=== PATIENT | male | born 1965 | race Caucasian/White ===

== ENCOUNTER 2020-04-05 11:41 | Emergency (ER) | payer SELFPAY ==
[2020-04-05 11:48] VITALS: BP 138/86; PULSE 73; RESP 16; TEMP 36.6; O2SAT 98; BMI 34.9
--- NOTE | 2020-04-05 12:11 | HMH.EDBACK ---
ED Disposition Clinical Impression: Lumbar radiculopathy Disposition: Home, Self-Care Condition on Discharge: Good Instructions: DI for Back Pain With Sciatica Additional Instructions: Follow-up with Dr. Jones at [facility] within the next week for reevaluation. Prescriptions: methylPREDNISolone [Medrol] 4 mg PO DIRECTED #21 pack Prescription Printed - Critical Care Critical Care Time: No Attestation: On 04/05/20, the high probability of a clinically significant, sudden or life threatening deterioration of the following system(s) required my full and direct attention, intervention and personal management. The time I documented below is in addition to time spent performing reported procedures but includes the following listed in this critical care notation. Medical Decision Making - Medical Records Medical records reviewed: Yes: I reviewed the patient's medical records. - Dioni Inquiry Pt receiving controlled substance: No Vital Signs: 04/05/20 11:48 Temperature 98 F Temperature Source Oral Pulse Rate [Left Radial] 73 Respiratory Rate 16 Blood Pressure [Right Arm] 138/86 Blood Pressure Mean [Right Arm] 103 Blood Pressure Position [Right Arm] Sitting 02 Sat by Pulse Oximetry 98 Oxygen Delivery Method Room Air Medical Decision Narrative: Exam and history is inconsistent with cauda equina, discitis, epidural abscess, mass. He recently had CT scan of the lumbar spine which showed, per patient report, no acute fracture but did suggest degenerative disc disease and inflammation , which is likely arthritis. He does not want to try any additional medications that might make him more sleepy. I have suggested steroids and follow-up with spine surgery. Patient comfortable with this plan. Discharged home. Back Pain HPI - General Chief Complaint: Back Pain/Injury Stated Complaint: pain in back Time Seen by Provider: 04/05/20 12:11 Mode of Arrival: Ambulatory Source of Information: Patient Limitations: No Limitations Description of Symptoms (Recalled from ER Triage Doc. by RN): to ed per pvt car with c/o lower back pain radiating down lt leg x 2 weeks. pt seen at er in [place] dx with ruptured disc pt given naproxen and robaxin with no relief of symptoms. pt states he has been unable to sleep due to pain - History of Present Illness HPI Narrative: This is a 55-year-old male who presents to the emergency department for evaluation of low back pain for the last 2 weeks. No urinary symptoms, no abdominal pain. He states it started after he had been sitting in a chair for a long time and stood up to stretch. Pain is worse when lying flat on his back. He has pain that radiates primarily down his left leg to his left anterior and posterior thigh, but now is also starting to radiate down his right thigh. He denies any loss of bowel or bladder control. He does not have any fevers. No history of IV drug abuse or cancer. No trauma or falls. He was seen for this several days ago at [facility] and was prescribed Robaxin and naproxen but has not had significant relief from this. He did have a CT scan performed at that time which showed degenerative disc disease and inflammation per patient's report. He also states that he does not want any additional medication here that might make him sleepy. He has tried Flexeril in the past for similar symptoms. He declined narcotics. He states Robaxin makes him sleepy as well and he cannot use it. - Related Data Home Medications Medication Instructions Recorded Confirmed Methocarbamol [Robaxin 500mg Tab*] 500 mg PO TID 04/05/20 04/05/20 Naproxen 500 mg PO BID 04/05/20 04/05/20 Previous Rx's Medication Instructions Recorded methylPREDNISolone [Medrol] 4 mg PO DIRECTED #21 pack 04/05/20 Allergies Allergy/AdvReac Type Severity Reaction Status Date / Time No Known Allergies Allergy Verified 04/05/20 12:12 [facility] History
[2020-04-05 12:45] VITALS: BP 130/97; PULSE 72; RESP 18; TEMP 36.7; O2SAT 98
== END 2020-04-05 12:46 | disposition home or self-care (01) ==
PROVIDERS: Emergency Provider Emergency Medicine
DX: M54.16 Radiculopathy, lumbar region (principal)
CPT/HCPCS: 99281

== ENCOUNTER 2023-06-26 07:24 | Emergency (ER) | payer OTHER, SELFPAY ==
[2023-06-26 07:25] VITALS: BP 142/93; PULSE 80; RESP 18; TEMP 36.5; O2SAT 97; BMI 35.2
[2023-06-26 07:31] VITALS: BP 142/93; PULSE 71; O2SAT 96
--- NOTE | 2023-06-26 07:31 | CT_ITS ---
FINAL REPORT TECHNIQUE: Axial images through the abdomen and pelvis were performed without contrast. This study was performed with techniques to keep radiation doses as low as reasonably achievable, (ALARA). Individualized dose reduction techniques using automated exposure control or adjustment of mA and/or kV according to the patient's size were employed. CLINICAL HISTORY: right flank pain rad to groin COMPARISON: None FINDINGS: Abdomen: The lung bases are clear. There is moderate fatty infiltration of the liver. The gallbladder is present. There is mild splenomegaly with the spleen measuring 14.3 cm. The pancreas, adrenals and kidneys are unremarkable. Pelvis: The urinary bladder is incompletely distended. The appendix is normal. There is no pelvic mass or inflammation. IMPRESSION: Moderate fatty liver. Mild splenomegaly. Reviewed, Interpreted and Dictated by Bentley Delarosa MD Transcribed by Tara Weller Authenticated and [facility]
--- NOTE | 2023-06-26 07:32 | HMH.EDGENADL ---
Discharge Plan Disposition Patient Disposition: Home, Self-Care Prescriptions Prescriptions: New ibuprofen 800 mg tablet 800 mg PO TID PRN (Reason: pain) 7 Days Qty: 20 0RF cyclobenzaprine 5 mg tablet 5 mg PO TID PRN (Reason: muscle spasm) 5 Days Qty: 15 0RF No Action methocarbamol 500 MG tablet 500 mg PO TID naproxen 500 MG tablet 500 mg PO BID methylprednisolone 4 MG tablets,dose pack 4 mg PO DIRECTED Qty: 21 0RF Rx Instructions: take as directed on package instructions Activity Restrictions/Add. Instructions Additional Instructions/Restrictions: No evidence of acute intra-abdominal pathology. He did have liver fatty infiltration as discussed. I would recommend follow-up with primary care doctor and losing weight. No evidence of kidney stone or any other emergent pathology. Your symptoms are most likely secondary to musculoskeletal strain and inflammation. Clinical Impressions Clinical Impression: Sacro-iliac pain, Fatty liver Stand Alone Forms Stand Alone Forms: Work/School Release Discharge ED Provider: Shanna King General Adult HPI General Chief complaint: PAIN Stated complaint: right side and back pain, congestion Time Seen by Provider: 06/26/23 07:26 History of Present Illness HPI narrative: Patient is a 58-year-old male presenting today with right lower back pain that is radiating into his right groin. Patient denies any history of kidney stones. Denies any hematuria urgency frequency or dysuria. No constipation or diarrhea. No fevers or chills. States he did have a viral URI last week but no other recent illnesses or significant medical problems. He does not complain of lower extremity weakness saddle anesthesia urinary or bowel incontinence or urinary retention etc. Related Data Home Medications Medication Instructions Recorded Confirmed methocarbamol 500 mg tablet 500 mg PO TID muscle relaxer 04/05/20 04/05/20 naproxen 500 mg tablet 500 mg PO BID Pain 04/05/20 04/05/20 Previous Rx's Medication Instructions Recorded methylprednisolone 4 mg tablets in 4 mg PO DIRECTED ##21 04/05/20 a dose pack cyclobenzaprine 5 mg tablet 5 mg PO TID PRN muscle spasm 5 06/26/23 days #15 tabs ibuprofen 800 mg tablet 800 mg PO TID PRN pain 7 days #20 06/26/23 tabs Allergies Allergy/AdvReac Type Severity Reaction Status Date / Time No Known Allergies Allergy Verified 04/05/20 12:12 [facility] Disclaimer: The information contained in this section may have been updated after the patient was seen, as this information can be updated by other users. Social History Smoking Status: Never smoker alcohol intake: never current occupational status: other Travel in the last 8 weeks: None household members: other housing: other ROS Obtained: Yes All systems reviewed & no additional complaints except as documented Physical Exam General General appearance: alert and in no apparent distress Respiratory Respiratory exam: Present normal lung sounds bilaterally; Absent respiratory distress Cardiovascular Cardiovascular exam: Present regular rate; Absent tachycardia Back Exam Back exam: Present other (Tender to palpation in the paraspinal region of the lower lumbar spine and the sacroiliac aspect); Absent CVA tenderness (R) or CVA tenderness (L) Neurological Exam Neurological exam: Present alert Medical Decision Making Dioni Inquiry Pt receiving controlled substance: No Vital Signs: 06/26/23 07:25 06/26/23 07:31 06/26/23 08:42 Temperature 97.7 F Temperature Source Oral Pulse Rate 71 61 Pulse Rate [Right] 80 Respiratory Rate 18 Blood Pressure 142/93 H 103/69 L Blood Pressure [Right Arm] 142/93 H Blood Pressure Mean 116 80 Blood Pressure Mean [Right Arm] 109 Blood Pressure Source [Right Arm] Automatic Cuff 02 Sat by Pulse Oximetry 97 96 96 Oxygen Delivery Method Room Air Lab Data Lab results re
[2023-06-26 07:45] LABS: Microscopic, Urine URINE MICROSCOPIC (MICROSCOPIC)
[2023-06-26 07:49] LABS: Appearance,Urine CLEAR (Clear); Blood, Urine Negative (Negative); Color,Urine YELLOW (Yellow); Glucose,Urine (UA) Negative (Negative); Ketones,Urine Negative (Negative); Leukocyte Esterase,Urine Negative (Negative); Nitrate,Urine Negative (Negative); Protein,Urine TRACE (Negative); Specific Gravity, Urine >= 1.030 (1.005-1.030); Urobilinogen,Urine 0.2 EU/dl (0.2)
[2023-06-26 07:58] LABS: Bilirubin,Urine 1+ (Negative)
[2023-06-26 08:03] LABS: Bacteria,Urine Trace /lpf; Squamous Epithelial Cell,Urine Occasional #/hpf (0-5)
[2023-06-26 08:04] LABS: Basophils # 0.1 K/mm3 (0-0.2); Basophils % 0.7 % (0.1-2.0); Eosinophils # 0.2 K/mm3 (0.0-0.4); Eosinophils % 3.6 % (0.1-12.0); Hematocrit 47.5 % (42.0-52.0); Hemoglobin 16.3 g/dL (14.1-18.0); Lymphocytes # 2.1 K/mm3 (0.7-4.5); Lymphocytes % 33.1 % (10-50); Mean Corpuscular HGB Conc 34.3 g/dL (31.8-35.4); Mean Corpuscular Hemoglobin 31.7 pg (27.0-31.2); Mean Corpuscular Volume 92.6 fl (80-94); Mean Platelet Volume 9.9 fl (7.4-10.4); Monocytes # 0.4 K/mm3 (0.1-1.0); Monocytes % 5.5 % (1.7-9.3); Neutrophils # 3.6 K/mm3 (1.8-7.8); Platelet Count 172 K/mm3 (142-424); Red Blood Count 5.14 M/mm3 (4.60-6.20); White Blood Count 6.3 K/mm3 (4.8-10.8)
[2023-06-26 08:09] LABS: Chloride 107 mmol/L (98-107)
[2023-06-26 08:10] LABS: Potassium 3.4 mmoL/L (3.5-5.1); Sodium 143 mmol/L (136-145)
[2023-06-26 08:12] LABS: Alanine Aminotransferase 42 U/L (12-78); Aspartate Amino Transferase 24 U/L (17-59); Blood Urea Nitrogen 18 mg/dl (9-20); Creatinine Clearance Estimated 136 mL/min (50-200); Estimated Glomerular Filt Rate 87 ml/min (>60); GFR (African American) 106 ML/MIN (>60)
[2023-06-26 08:13] LABS: Albumin Level 4.1 g/dl (3.5-5.0); Albumin/Globulin Ratio 1.3 (1.1-1.8); Alkaline Phosphatase 112 U/L (38-126); Anion Gap 14.4 mEq/L (5-15); Bilirubin,Total 0.9 mg/dl (0.2-1.3); Calcium 9.7 mg/dl (8.4-10.2); Carbon Dioxide 25 mmol/L (22.0-30.0); Globulin 3.1 g/dL (1.3-3.2); Glucose 123 mg/dl (74-100); Total Protein,Serum 7.2 g/dl (6.3-8.2)
--- NOTE | 2023-06-26 08:40 | PC.NURSE ---
Rounded on patient; no needs as this time, call britton within reach.
[2023-06-26 08:42] VITALS: BP 103/69; PULSE 61; O2SAT 96
[2023-06-26 09:04] VITALS: BP 115/72; PULSE 51; RESP 17; TEMP 36.6; O2SAT 98
== END 2023-06-26 09:32 | disposition home or self-care (01) ==
PROVIDERS: Emergency Provider Student in an Organized Health Care Education/Training Program
DX: M54.50 Low back pain, unspecified (principal); R10.2 Pelvic and perineal pain; M53.3 Sacrococcygeal disorders, not elsewhere classified; K76.0 Fatty (change of) liver, not elsewhere classified
CPT/HCPCS: 74176; 80053; 81001; 85025; 96361; 96374; 96375; 99285; J2405